=== PATIENT | female | born 1990 | race Caucasian/White ===

== ENCOUNTER 2021-03-13 16:36 | Emergency (ER) | payer OTHER, SELFPAY ==
[2021-03-13 16:51] VITALS: BP 125/73; PULSE 82; RESP 18; TEMP 37; O2SAT 97; BMI 22.6
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
--- NOTE | 2021-03-13 18:24 | DI.RAD.S_ITS ---
PROCEDURE: XR PELVIS 1-2V INDICATIONS: fall with pelvic pain TECHNIQUE: Single AP view(s) of the pelvis acquired. COMPARISON: None. FINDINGS: Bones: No fractures or dislocations. No suspicious bony lesions. Soft tissues: Visualized bowel gas pattern is normal. No suspicious soft tissue calcifications. IMPRESSION: Pelvis without acute fracture or dislocation. Dictated by: Harsh Muñiz M.D. on 03/13/2021 at 20:18 Approved by: Harsh Muñiz M.D. on 03/13/2021 at 20:19
[2021-03-13] MEDS: LIDO 1%/SOD BICARB 8.4% (10ML) 10 ML SYRINGE INJ (19:47)
[2021-03-13] MEDS: HYDROCODONE/ACET 5/325 PREPACK 1 BOTTLE MISC (22:37)
[2021-03-13 22:55] VITALS: BP 112/72; PULSE 70; RESP 14; O2SAT 99
== END 2021-03-13 22:50 | disposition home or self-care (01) ==
PROVIDERS: Emergency Provider Emergency Medicine
DX: S31.41XA Laceration without foreign body of vagina and vulva, initial encounter (principal); W19.XXXA Unspecified fall, initial encounter
CPT/HCPCS: 12001; 72170; 99283